=== PATIENT | male | born 1945 | race Caucasian/White ===

== ENCOUNTER 2024-11-20 00:58 | Outpatient (CLI) | payer MEDICARE, SELFPAY ==
--- NOTE | 2024-11-20 13:15 | DI.RAD_ITS ---
Exam(s) XR FOOT LT COMPLETE XR FOOT RT COMPLETE EXAM: XR FOOT RT COMPLETE CLINICAL HISTORY: Right foot pain M79.671. TECHNIQUE: 2D digital imaging was performed. Three views. COMPARISON: CR XR FOOT LT COMPLETE from 11/20/2024 FINDINGS: BONES: No acute fracture is present. No bony destructive lesion is seen. There are enthesophytes at the bases of the 5th metatarsals. JOINTS: No dislocation present. There is bilateral varus deviation of the 5th. Is also mild valgus angulation at the 3rd toes bilaterally. There are heel spurs bilaterally. Both lateral and medial s esamoids are bipartite which is also bilateral. There are mild degenerative changes in the intertars al region.. SOFT TISSUE: Normal. IMPRESSION: Bilateral heel spurs and other symmetric findings as mentioned above. DATA REPOSITORY: RADIATION DOSE DELIVERED:
== END 2024-11-20 01:18 ==
PROVIDERS: PCP Family Medicine; Visit Provider Podiatrist
DX: M79.671 Pain in right foot (principal); M79.672 Pain in left foot; M67.01 Short Achilles tendon (acquired), right ankle; M67.02 Short Achilles tendon (acquired), left ankle; M19.172 Post-traumatic osteoarthritis, left ankle and foot; G57.63 Lesion of plantar nerve, bilateral lower limbs; M20.41 Other hammer toe(s) (acquired), right foot; M20.42 Other hammer toe(s) (acquired), left foot; Q82.8 Other specified congenital malformations of skin
CPT/HCPCS: 17110; 99203; 73630